=== PATIENT | male | born 1985 | race Two or more races ===

== ENCOUNTER 2018-12-21 15:01 | Emergency (ER) | payer SELFPAY ==
[2018-12-21] MEDS ORDERED: ACETAMINOPHEN 325 MG TABLET PO ONE (16:08)
[2018-12-21] MEDS ORDERED: DIPH/PERTUSS(ACELL)/TETANUS VAC/PF 0.5 ML SYR (>=10YO) IM ONE (16:08)
--- NOTE | 2018-12-21 16:13 | ER Document Report ---
HPI - HPI Time Seen by Provider: 12/21/18 15:58 Pain Level: 4 Context: Patient is a 33-year-old male presents to the emergency department with a chief complaint of finger injury. Patient states around 11 AM this morning he was at work when he smashed his right middle finger in between a piece of wood. Patient states having a laceration to the distal aspect of the right middle finger on the pad. Patient reports it did initially bleed. Patient states he has not taken any medication for this pain. Patient states his tetanus shot is not up-to-date. - CONSTITUTIONAL Constitutional: DENIES: Fever, Chills - MUSCULOSKELETAL Musculoskeletal: REPORTS: Extremity pain - R middle finger Past Medical History - General Information source: Patient - Social History Smoking Status: Unknown if Ever Smoked Lives with: Family Family History: None Patient has suicidal ideation: No Patient has homicidal ideation: No - Past Medical History Cardiac Medical History: Reports: None Pulmonary Medical History: Reports: None EENT Medical History: Reports: None Neurological Medical History: Reports: None Endocrine Medical History: Reports: None Renal/ Medical History: Reports: None. Denies: Hx Peritoneal Dialysis Malignancy Medical History: Reports None GI Medical History: Reports: None Musculoskeletal Medical History: Reports None Skin Medical History: Reports None Psychiatric Medical History: Reports: None Traumatic Medical History: Reports: None Infectious Medical History: Reports: None Surgical Hx: Negative Vertical Provider Document - CONSTITUTIONAL Agree With Documented VS: Yes Exam Limitations: No Limitations General Appearance: No Apparent Distress - HEENT HEENT: Atraumatic, Normal ENT Exam, Normocephalic - NECK Neck: Normal Inspection - RESPIRATORY Respiratory: Breath Sounds Normal, No Respiratory Distress - CARDIOVASCULAR Cardiovascular: Regular Rate, Regular Rhythm - GI/ABDOMEN Gastrointestinal: Abdomen Soft, Abdomen Non-Tender - NEURO Level of Consciousness: Awake, Alert, Appropriate - DERM Integumentary: Warm, Laceration Notes: There is a 2 cm half-parikh shaped laceration noted to the distal aspect of the right middle finger. This is not noted on the ventral aspect of the hand. There does not appear to be any nail involvement. There is no active bleeding. Patient has strong flexion and extension of the right middle finger. Patient has less than 2-second cap refill. Course - Re-evaluation Re-evalutation: 12/21/18 16:12 We will update tetanus, obtain an x-ray of the right middle finger. Patient will require irrigation and cleansing of the wound prior to suture repair. 12/21/18 17:52 X-ray of the shoulder and finger were negative for any acute fracture or bony abnormality. Will set up for a suture repair. - Vital Signs Vital signs: Temp Pulse Resp BP Pulse Ox 98.0 F 59 L 18 142/73 H 97 12/21/18 15:08 12/21/18 15:08 12/21/18 15:08 12/21/18 15:08 12/21/18 15:08 - Diagnostic Test Radiology reviewed: Reports reviewed Radiology results interpreted by me: 12/21/18 17:52 Finger X-Ray 12/21/18 16:08 IMPRESSION: No fracture or dislocation of the right long finger. Soft tissue swelling. Shoulder X-Ray 12/21/18 16:08 IMPRESSION: NEGATIVE STUDY OF THE RIGHT SHOULDER. NO RADIOGRAPHIC EVIDENCE OF ACUTE INJURY. Procedures - Laceration/Wound Repair Right Distal Finger 3rd digit Time completed: 18:30 Wound length (cm): 2.5 Wound's Depth, Shape: Irregular, Flap Anesthetic type: 1% Lidocaine Volume Anesthetic (mLs): 5 Wound explored: Clean Irrigated w/ Saline (mLs): 150 Wound Repaired With: Sutures Suture Size/Type: 5:0, Ethilon Post-procedure wound care: Sterile dressing applied Post-procedure NV exam normal: Yes Complications: No Hands front picture: 1 - A jagged, L shaped, irregular laceration into the subcutaneous tissue. No tendon, nerve or bone visualized. Discharge - Discharge Clinical Impression: Laceration Condition: Stable Disposition: HOME, SELF-CARE Instructions: Laceration Care ([facility]), Tetanus Immunization Given ([facility]), Soap Cleansing ([facility]), Prophylactic Antibiotic ([facility]) Additional Instructions: Today you were seen in the emergency department for a laceration to the tip of the right middle finger. The x-ray did not show any acute fracture or bony abnormality. I did cleanse the wound thoroughly and used 9 sutures to repair the wound. These need to come out and one week. Please keep that clean and dry. Please keep it covered while working. Please return to the emergency department earlier if you are unable to move your finger, unable to bend the finger joints, have redness or signs of infection to include fever. Dislocation of the laceration you are being placed on prophylactic antibiotics for 5 days. Please take this for its full completed course. He will also complained of right shoulder pain. You have stated that this has been present for 1 year. The x-ray did not show any acute abnormality. I will refer you to orthopedics if he continued to have discomfort as he may need further imaging. Hoy lo vieron en el departamento de emergencias por nura laceracin en la punta del dedo medio derecho. La radiografa no mostr ninguna fractura aguda o anormalidad sea. Limpi la herida a fondo y us 9 suturas para reparar la herida. Estos necesitan salir y nura semana. Por favor mantngalo limpio y seco. Mantngalo cubierto mientras trabaja. Regrese al departamento de emergencias antes si no puede public relations representative el dedo, no puede doblar las articulaciones de los dedos, tiene enrojecimiento o signos de infeccin para incluir fiebre. Dislocacin de la laceracin que se le est administrando con antibiticos profilcticos luz elena 5 jimenez. Por favor, tome esto para gallegos curso completo completo. Tambin se quejar de dolor en el hombro derecho. Usted mccarty declarado que esto mccarty estado presente luz elena 1 ao. La radiografa no mostr ninguna anormalidad aguda. Le remitir a ortopedia si contina sintiendo molestias, ya que puede necesitar ms imgenes. Laceration Care Your laceration has been sutured to keep the skin edges aligned during healing. The time of suture removal depends on the nature and location of your cut. Please follow the care instructions the doctor has outlined for you and return for further care, according to the schedule you've been given. Keep the wound and dressing clean. Unless you were told otherwise, you may shower daily, blotting the wound dry with a clean, unused towel. At other times, If the dressing gets wet or blood soaked, remove it and blot the wound dry, then reapply a new dressing. Unless you were instructed otherwise, dressings should be changed at least daily. If any signs of infection occur (swelling, redness, increasing tenderness, red streaks, tender lumps in the armpit or groin above the laceration, or fever), see the doctor immediately. Prescriptions: Cephalexin Monohydrate [Keflex 500 mg Capsule] 500 mg PO QID 5 Days capsule Referrals: MONA PATTERSON DO [ACTIVE STAFF] - Follow up as needed UNA BESS MD [ACTIVE STAFF] - Follow up as needed SAVAGE PARKER MD [ACTIVE PROVISIONAL STAFF] - Follow up as needed
--- NOTE | 2018-12-21 17:44 | RADIOLOGY REPORT (SQ) ---
EXAM DESCRIPTION: FINGER RIGHT COMPLETED DATE/TIME: 12/21/2018 4:54 pm REASON FOR STUDY: right middle finger laceration, crush injury COMPARISON: None. NUMBER OF VIEWS: Three views. TECHNIQUE: AP, lateral, and oblique images acquired of the right third finger. LIMITATIONS: None. FINDINGS: MINERALIZATION: Normal. BONES: No acute fracture or dislocation. No worrisome bone lesions. SOFT TISSUES: Soft tissue swelling. OTHER: No other significant finding. IMPRESSION: No fracture or dislocation of the right long finger. Soft tissue swelling. COMMENT: SITE OF TRAUMA/COMPLAINT MARKED/STAMP COMPLETED: YES. TECHNICAL DOCUMENTATION: JOB ID: [id number] [employer]- All Rights Reserved Reading location - IP/workstation name: [email or web address]
--- NOTE | 2018-12-21 17:46 | RADIOLOGY REPORT (SQ) ---
EXAM DESCRIPTION: SHOULDER RIGHT 2 OR MORE VIEWS COMPLETED DATE/TIME: 12/21/2018 4:54 pm REASON FOR STUDY: right shoulder pain COMPARISON: None. NUMBER OF VIEWS: Three views. TECHNIQUE: Internal rotation, external rotation, and Y view images acquired of the right shoulder. LIMITATIONS: None. FINDINGS: MINERALIZATION: Normal. BONES: No acute fracture. No worrisome bone lesions. JOINTS: No dislocation. VISUALIZED LUNGS AND RIBS: No pneumothorax. No rib fracture. SOFT TISSUES: No radiopaque foreign body. OTHER: No other significant finding. IMPRESSION: NEGATIVE STUDY OF THE RIGHT SHOULDER. NO RADIOGRAPHIC EVIDENCE OF ACUTE INJURY. TECHNICAL DOCUMENTATION: JOB ID: [id number] [employer]- All Rights Reserved Reading location - IP/workstation name: [email or web address]
[2018-12-21] MEDS ORDERED: LIDOCAINE 1% INJ-PF (10 MG/ML) 30 ML SDV INJ ONE (17:49)
[2018-12-21] MEDS ORDERED: CEPHALEXIN 500 MG CAPSULE PO ONE (19:15)
[2018-12-21] MEDS ORDERED: OXYCODONE-ACETAMINOPHEN 5-325 MG TABLET PO ONE (19:15)
[2018-12-21 19:25] VITALS: BP 135/77
== END 2018-12-21 19:28 | disposition home or self-care (01) ==
LOC: ER 15:01
DX: S61.212A Laceration without foreign body of right middle finger without damage to nail, initial encounter (principal); W23.0XXA Caught, crushed, jammed, or pinched between moving objects, initial encounter; Y99.0 Civilian activity done for income or pay; Z23 Encounter for immunization
CPT/HCPCS: 99283; 90471; 73140; 73030; 90715; 12001; J3490